=== PATIENT | female | born 1965 | race American Indian/Alaskan Native ===

== ENCOUNTER 2017-05-08 00:24 | Emergency (ER) | payer MEDICARE ==
--- NOTE | 2017-05-08 01:57 | Cat Scan Report ---
FINAL REPORT EXAM: CT HEAD/BRAIN W/O CONTRAST. HISTORY: Headache, with reported different migraine than usual. TECHNIQUE: Unenhanced axial CT images of the brain were obtained. FINDINGS: The cortical sulci and ventricles are within normal limits for patient's age. The veras-white differentiation is maintained. There is no extra-axial fluid collection, mass, mass effect, midline shift, hydrocephalus, or acute intracranial hemorrhage. There is minimal sinus mucosal thickening in the dependent portions of the bilateral sphenoid sinuses, with possible air-fluid levels. There is also minimal sinus mucosal thickening in several right anterior ethmoid air cells. The remainder of the visualized paranasal sinuses and mastoid air cells are clear. There is no skull fracture or other osseous abnormality. The visualized orbits and globes are grossly unremarkable. IMPRESSION: 1. No acute intracranial abnormality. 2. Minimal status mucosal thickening in the dependent bilateral sphenoid sinuses, with possible tiny air-fluid levels, raising possibility of minimal acute sinusitis.
[2017-05-08] MEDS ORDERED: TYLENOL PO ONE (04:45)
[2017-05-08] MEDS ORDERED: TYLENOL ONE (04:51)
[2017-05-08 13:24] VITALS: BP 96/71
[2017-05-08] MEDS ORDERED: DECADRON IM ONE (13:31)
--- NOTE | 2017-05-08 13:38 | Emergency Department Report ---
ED Headache HPI - General Chief Complaint: Headache Stated Complaint: MIGRAIN HEADACHE Time Seen by Provider: 05/08/17 13:26 Source: patient - History of Present Illness Initial Comments: Patient is 52 years old female with history of headache. Presented with headache started 2 days ago on and off global. Patient stated her headache is different this time. Patient denied any fever or neck stiffness. No weakness numbness or tingling sensation. No bowel or bladder incontinence. Timing/Duration: 24 hours Quality: moderate Head Injury Location: global Recent Head Trauma: no recent headache/trauma Associated Symptoms: sinus infection. denies: denies symptoms, confusion, fatigue, facial pain, fever/chills, flushing, loss of consciousness, nausea/ vomiting, nasal congestion, nasal drainage, numbness in legs/feet, rash, seizures, stiff neck, vision changes, weakness, other Allergies/Adverse Reactions: Allergies No Known Allergies Allergy (Verified 01/26/13 16:11) Home Medications: Ambulatory Orders Esomeprazole Magnesium [Nexium] 40 mg PO BID 01/26/13 Cyclobenzaprine HCl [Flexeril 5 MG TAB] 5 mg PO TID PRN #10 tablet 06/03/13 HYDROcodone/APAP 5-325 [[place] 5-325 mg TAB] 1 each PO Q8HR PRN #6 tablet traMADol [Ultram] 50 mg PO Q6HR PRN #20 tablet 08/23/15 ED Review of Systems ROS: Stated complaint: MIGRAIN HEADACHE Other details as noted in HPI Comment: All other systems reviewed and negative Constitutional: denies: chills, fever ENT: congestion Cardiovascular: denies: chest pain, palpitations Gastrointestinal: denies: abdominal pain, nausea, vomiting, diarrhea, constipation, hematemesis, hematochezia Neurological: denies: headache, weakness, numbness, paresthesias ED Past Medical Hx - Past Medical History Previous Medical History?: Yes Additional medical history: complex regional pain syndrome, gout - Surgical History Past Surgical History?: No Additional Surgical History: foot surgery jun 2011 - Social History Smoking Status: Former Smoker Substance Use Type: None - Medications Home Medications: Home Medications Medication Instructions Recorded Confirmed Last Taken Type Esomeprazole Magnesium [Nexium] 40 mg PO BID 01/26/13 06/03/13 06/03/13 History Cyclobenzaprine HCl [Flexeril 5 MG 5 mg PO TID PRN #10 tablet 06/03/13 Unknown Rx TAB] HYDROcodone/APAP 5-325 [[place] 1 each PO Q8HR PRN #6 tablet 06/03/13 Unknown Rx 5-325 mg TAB] traMADol [Ultram] 50 mg PO Q6HR PRN #20 tablet 08/23/15 Unknown Rx ED Physical Exam - General Limitations: No Limitations General appearance: alert, in no apparent distress - ENT ENT exam: Present: other (sinus tenderness) - Neck Neck exam: Present: normal inspection, full ROM. Absent: tenderness, meningismus, lymphadenopathy, thyromegaly - Respiratory Respiratory exam: Present: normal lung sounds bilaterally. Absent: respiratory distress, wheezes, rales, rhonchi, stridor, chest wall tenderness, accessory muscle use, decreased breath sounds, prolonged expiratory - Cardiovascular Cardiovascular Exam: Present: regular rate, normal rhythm, normal heart sounds - GI/Abdominal GI/Abdominal exam: Present: soft, normal bowel sounds. Absent: distended, tenderness, guarding, rebound, rigid, organomegaly, mass, bruit, pulsatile mass , hernia - Extremities Exam Extremities exam: Present: normal inspection, full ROM, normal capillary refill - Back Exam Back exam: Present: normal inspection, full ROM. Absent: tenderness, CVA tenderness (R), CVA tenderness (L), muscle spasm, paraspinal tenderness, vertebral tenderness - Neurological Exam Neurological exam: Present: alert, oriented X3, CN II-XII intact, normal gait, reflexes normal. Absent: abnormal gait, motor sensory deficit - Skin Skin exam: Present: warm, intact, normal color. Absent: cyanosis, diaphoretic, erythema ED Course Vital Signs 05/08/17 05/08/17 05/08/17 00:31 00:55 04:55 Temperature 99.3 F 99.3 F Pulse Rate 109 H 96 H Respiratory 20 20 18 Rate Blood Pressure 113/77 113/77 Blood Pressure [Right] O2 Sat by Pulse 97 95 Oximetry 05/08/17 05/08/17 05:55 13:23 Temperature 98.5 F Pulse Rate 99 H Respiratory 18 18 Rate Blood Pressure Blood Pressure 96/71 [Right] O2 Sat by Pulse 96 Oximetry ED Medical Decision Making - Radiology Data Radiology results: report reviewed Referring Physician: ED DOC Patient Name: JULIANN WILLETT Date of : 1965 Sex: Female Report Date: 2017-05-07 Report Status: Finalized Findings [facility] [address] [place] [address] Cat Scan Report Signed Patient: JULIANN WILLETT MR#: [id number] : 1965 Acct:[id number] Age/Sex: 52 / F ADM Date: 05/08/17 Loc: ED Attending Dr: Ordering Physician: SRI BE MD Date of Service: 05/08/17 Procedure(s): CT head/brain wo con Accession Number(s): [id number] cc: ED MD [place] FINAL REPORT EXAM: CT HEAD/BRAIN W/O CONTRAST. HISTORY: Headache, with reported different migraine than usual. TECHNIQUE: Unenhanced axial CT images of the brain were obtained. FINDINGS: The cortical sulci and ventricles are within normal limits for patient's age. The veras-white differentiation is maintained. There is no extra-axial fluid collection, mass, mass effect, midline shift, hydrocephalus, or acute intracranial hemorrhage. There is minimal sinus mucosal thickening in the dependent portions of the bilateral sphenoid sinuses, with possible air-fluid levels. There is also minimal sinus mucosal thickening in several right anterior ethmoid air cells. The remainder of the visualized paranasal sinuses and mastoid air cells are clear. There is no skull fracture or other osseous abnormality. The visualized orbits and globes are grossly unremarkable. IMPRESSION: 1. No acute intracranial abnormality. 2. Minimal status mucosal thickening in the dependent bilateral sphenoid sinuses, with possible tiny air-fluid levels, raising possibility of minimal acute sinusitis. Transcribed By: [facility] Dictated By: LUIS MATOS MD Electronically Authenticated By: LUIS MATOS MD Signed Date/Time: 05/07/172153 DD/ 53 TD/TT: 05/07/172153 Critical care attestation.: If time is entered above; I have spent that time in minutes in the direct care of this critically ill patient, excluding procedure time. ED Disposition Clinical Impression: Headache, Sinusitis Disposition: - TO HOME OR SELFCARE Is pt being admited?: No Condition: Stable Instructions: Sinusitis (ED), Acute Headache (ED) Referrals: NADIA ARIZMENDI, [employer] [Primary Care Provider] - 3-5 Days
[2017-05-08] MEDS ORDERED: ZOFRAN IM ONE (13:48)
[2017-05-08] MEDS ORDERED: MORPHINE IM ONE (13:48)
== END 2017-05-08 16:43 | disposition home or self-care (01) ==
LOC: ED 00:24
DX: J32.9 Chronic sinusitis, unspecified (principal); R51 Headache; Z87.891 Personal history of nicotine dependence
CPT/HCPCS: 70450; 96372; 99283; J1100; J2270; J2405

== ENCOUNTER 2018-12-31 20:36 | Emergency (ER) | payer MEDICARE ==
[2018-12-31 20:58] VITALS: BP 119/83
--- NOTE | 2018-12-31 21:21 | Event Note ---
ED Screening Note ED Screening Note: pt presents with lower back pain that began tonight she states she "pulled her back" states it causes pain in her BLE PMHx CRPS no allergies to meds PSHx hysterectomy This initial assessment/diagnostic orders/clinical plan/treatment(s) is/are subject to change based on patients health status, clinical progression and re- assessment by fellow clinical providers in the ED. Further treatment and workup at subsequent clinical providers discretion. Patient/guardian urged not to elope from the ED as their condition may be serious if not clinically assessed and managed. Initial orders include: XR L-spine
--- NOTE | 2018-12-31 22:24 | XRay Report ---
CLINICAL DATA: lower back pain TECHNICAL DATA: AP, lateral and L5-S1 spot views. FINDINGS: The five lumbar vertebrae have normal height, alignment and mineralization. There is no fracture or d islocation. Intervertebral disc space L5-S1 present. The sacroiliac joints and partially imaged pelvi s are normal. IMPRESSION: Mild degenerative changes as described. Signer Name: Andrea Lino MD Signed: 12/31/2018 10:20 PM Workstation Name: [id number]
[2018-12-31] MEDS ORDERED: TORADOL IM ONE (23:34)
[2018-12-31] MEDS ORDERED: NORCO 10/325 PO ONE (23:34)
[2018-12-31] MEDS ORDERED: DELTASONE PO ONE ×2 (23:34→23:38)
[2018-12-31] MEDS ORDERED: TORADOL ONE (23:37)
[2018-12-31] MEDS ORDERED: NORCO 10/325 ONE (23:38)
[2018-12-31 23:55] LABS: Basophils # (Auto) 0.1 K/mm3 (0.0-0.1); Eosinophils # (Auto) 0.2 K/mm3 (0.0-0.4); Eosinophils % (Auto) 2.6 % (0.0-4.3); Hematocrit 41.7 % (30.3-42.9); Hemoglobin 14.4 gm/dl (10.1-14.3); Lymphocytes # (Auto) 2.8 K/mm3 (1.2-5.4); Lymphocytes % (Auto) 42.6 % (13.4-35.0); Mean Corpuscular HGB Conc 34 % (30-34); Mean Corpuscular Volume 90 fl (79-97); Monocytes # (Auto) 0.5 K/mm3 (0.0-0.8); Monocytes % (Auto) 7.4 % (0.0-7.3); Platelet Count 250 K/mm3 (140-440); Red Blood Count 4.62 M/mm3 (3.65-5.03); Red Cell Distribution Width 13.7 % (13.2-15.2)
[2019-01-01 00:14] LABS: BUN/Creatinine Ratio 17; Blood Urea Nitrogen 17 mg/dL (7-17); Calcium 9.6 mg/dL (8.4-10.2); Hemolysis Index 8
--- NOTE | 2019-01-01 00:39 | Emergency Department Report ---
ED Back Pain/Injury HPI - General Chief Complaint: Back Pain/Injury Stated Complaint: DIZZY Time Seen by Provider: 12/31/18 21:19 Source: patient Limitations: No Limitations - History of Present Illness Initial Comments: This is a 53-year-old female nontoxic, well nourished in appearance, no acute signs of distress presents to the ED with c/o of acute on chronic lower back pain. Patient stated that the past 2 days she was heavy lifting and developed this pain. Patient states has history of sciatica nerve pain which is similar symptoms as today. Patient states that pain radiates through to his bilateral lower extremity. Patient denies any trauma. Denies any bladder or bowel instability. Patient denies any urinary symptoms. Denies any fever, chills, nausea, vomiting, headache, stiff neck, chest pain or shortness of breath. Patient denies any numbness or tingling. Denies any allergies. Denies significant past medical history. MD Complaint: back pain -: days(s) Similar Symptoms Previously: Yes Place: home Radiation: left leg, right leg Severity: mild Severity scale (0 -10): 8 Quality: aching Consistency: intermittent Improves With: immobilization, sitting upright Worsens With: movement, walking Context: while lifting, turning/twisting Associated Symptoms: denies other symptoms. denies: confusion, weakness, chest pain, numbness, difficulty walking, cough, difficulty urinating, diaphoresis, incontinence, fever/chills, constipation, headaches, abdominal pain, loss of appetite, malaise, nausea/vomiting, rash, seizure, shortness of breath, syncope - Related Data Home Medications Medication Instructions Recorded Confirmed Last Taken Esomeprazole Magnesium [Nexium] 40 mg PO BID 01/26/13 06/03/13 06/03/13 Previous Rx's Medication Instructions Recorded Last Taken Type Cyclobenzaprine HCl [Flexeril 5 MG 5 mg PO TID PRN #10 tablet 06/03/13 Unknown Rx TAB] HYDROcodone/APAP 5-325 [[place] 1 each PO Q8HR PRN #6 tablet 06/03/13 Unknown Rx 5-325 mg TAB] traMADol [Ultram] 50 mg PO Q6HR PRN #20 tablet 08/23/15 Unknown Rx Amoxicillin [Amoxicillin TAB] 875 mg PO BID #14 tablet 05/08/17 Unknown Rx Ondansetron [Zofran Odt] 4 mg PO Q8HR PRN #14 tab.rapdis 05/08/17 Unknown Rx Prednisone [predniSONE ([place]) ER 40 mg PO QDAY #40 tablet.dr 05/08/17 Unknown Rx TAB] traMADol [Ultram] 50 mg PO Q6HR PRN #14 tablet 05/08/17 Unknown Rx Acetaminophen/Codeine [Tylenol 1 tab PO Q6H PRN #12 tab 01/01/19 Unknown Rx /Codeine # 3 tab] Cyclobenzaprine [Flexeril] 10 mg PO QHS PRN #10 tablet 01/01/19 Unknown Rx Ibuprofen [Motrin] 600 mg PO Q8H PRN #20 tablet 01/01/19 Unknown Rx Prednisone [predniSONE 10 mg 10 mg PO .TAPER #1 tab.ds.pk 01/01/19 Unknown Rx (6-Day Pack, 21 Tabs)] Allergies Allergy/AdvReac Type Severity Reaction Status Date / Time No Known Allergies Allergy Verified 01/26/13 16:11 ED Review of Systems ROS: Stated complaint: DIZZY Other details as noted in HPI Constitutional: denies: chills, fever Eyes: denies: eye pain, eye discharge, vision change ENT: denies: ear pain, throat pain Respiratory: denies: cough, shortness of breath, wheezing Cardiovascular: denies: chest pain, palpitations Endocrine: no symptoms reported Gastrointestinal: denies: abdominal pain, nausea, diarrhea Genitourinary: denies: urgency, dysuria, discharge Musculoskeletal: back pain. denies: joint swelling, arthralgia Skin: denies: rash, lesions Neurological: denies: headache, weakness, paresthesias Psychiatric: denies: anxiety, depression Hematological/Lymphatic: denies: easy bleeding, easy bruising ED Past Medical Hx - Past Medical History Previous Medical History?: Yes Additional medical history: complex regional pain syndrome, gout - Surgical History Past Surgical History?: Yes Additional Surgical History: foot surgery jun 2011, Hysterectomy - Social History Smoking Status: Current Some Day Smoker Substance Use Type: None - Medications Home Medications: Home Medications Medication Instructions Recorded Confirmed Last Taken Type Esomeprazole Magnesium [Nexium] 40 mg PO BID 01/26/13 06/03/13 06/03/13 History Cyclobenzaprine HCl [Flexeril 5 MG 5 mg PO TID PRN #10 tablet 06/03/13 Unknown Rx TAB] HYDROcodone/APAP 5-325 [[place] 1 each PO Q8HR PRN #6 tablet 06/03/13 Unknown Rx 5-325 mg TAB] traMADol [Ultram] 50 mg PO Q6HR PRN #20 tablet 08/23/15 Unknown Rx Amoxicillin [Amoxicillin TAB] 875 mg PO BID #14 tablet 05/08/17 Unknown Rx Ondansetron [Zofran Odt] 4 mg PO Q8HR PRN #14 tab.rapdis 05/08/17 Unknown Rx Prednisone [predniSONE ([place]) ER 40 mg PO QDAY #40 tablet.dr 05/08/17 Unknown Rx TAB] traMADol [Ultram] 50 mg PO Q6HR PRN #14 tablet 05/08/17 Unknown Rx Acetaminophen/Codeine [Tylenol 1 tab PO Q6H PRN #12 tab 01/01/19 Unknown Rx /Codeine # 3 tab] Cyclobenzaprine [Flexeril] 10 mg PO QHS PRN #10 tablet 01/01/19 Unknown Rx Ibuprofen [Motrin] 600 mg PO Q8H PRN #20 tablet 01/01/19 Unknown Rx Prednisone [predniSONE 10 mg 10 mg PO .TAPER #1 tab.ds.pk 01/01/19 Unknown Rx (6-Day Pack, 21 Tabs)] ED Physical Exam - General Limitations: No Limitations General appearance: alert, in no apparent distress - Head Head exam: Present: atraumatic, normocephalic - Neck Neck exam: Present: normal inspection, full ROM. Absent: tenderness, meningismus, lymphadenopathy - Extremities Exam Extremities exam: Present: normal inspection, full ROM. Absent: tenderness - Back Exam Back exam: Present: normal inspection, full ROM, paraspinal tenderness (lumbar paraspinal). Absent: tenderness, CVA tenderness (R), CVA tenderness (L), muscle spasm, vertebral tenderness, rash noted - Expanded Back Exam Expanded Back exam: Absent: saddle anesthesia Back exam: Negative Straight Leg Raising: Left, Right - Neurological Exam Neurological exam: Present: alert, oriented X3, normal gait - Psychiatric Psychiatric exam: Present: normal affect, normal mood - Skin Skin exam: Present: warm, dry, intact, normal color. Absent: rash ED Course Vital Signs 12/31/18 20:57 Temperature 97.8 F Pulse Rate 94 H Respiratory 20 Rate Blood Pressure 119/83 O2 Sat by Pulse 98 Oximetry - Reevaluation(s) Reevaluation #1: 01/01/19 00:33 Patient is speaking in full sentences with no signs of distress noted. ED Medical Decision Making - Lab Data Result diagrams: 12/31/18 23:43 12/31/18 23:43 - Medical Decision Making This is a 53-year-old female that presents with low back strain. Patient is stable was examined by me. There is no spinal tenderness. There is no cauda equina syndrome during examination. No bladder or bowel instability. Patient received Toradol 60 mg IM, [place], and prednisone in the ED which staetd that her symptoms has resolved and subsided. Patient stated her family member will drive her home after discharge due to possible drowsiness of [place]. Patient is discharged with Tylenol with Codeine, prednisone, muscle relaxant and Motrin. Patient was instructed not to operate any machinery while taking muscle relaxant as they cause her drowsiness. Patient was referred to Follow-up with a primary care doctor in 3-5 days or if symptoms worsen and continue return to emergency room as soon as possible. At time of discharge, the patient does not seem toxic or ill in appearance. No acute signs of distress noted. Patient agrees to discharge treatment plan of care. No further questions noted by the patient. This chart is dictated with using [employer] Dictation [employer] Critical care attestation.: If time is entered above; I have spent that time in minutes in the direct care of this critically ill patient, excluding procedure time. ED Disposition Clinical Impression: Low back strain Qualifiers: Encounter type: initial encounter Qualified Code(s): S39.012A - Strain of muscle, fascia and tendon of lower back, initial encounter DJD (degenerative joint disease), lumbar Qualifiers: Spinal osteoarthritis complication: unspecified spinal osteoarthritis Qualified Code(s): M47.816 - Spondylosis without myelopathy or radiculopathy, lumbar region Disposition: - TO HOME OR SELFCARE Is pt being admited?: No Does the pt Need Aspirin: No Condition: Stable Instructions: Muscle Strain (ED), Cyclobenzaprine (By mouth) Additional Instructions: Follow-up with your primary care doctor in 3-5 days or if symptoms worsen such as bladder or bowel stability, chest pain, short of breath, numbness or tingling sensation in extremities, headache, dizziness, visual changes, nausea vomiting, or abdominal pain, return back to emergency room as was possible. Take ibuprofen and Flexeril as prescribed. Do not operate heavy machinery while taking Flexeril due to sedation Do not operate any machinery while taking Tylenol with codeine as this may cause drowsiness. Prescriptions: Cyclobenzaprine [Flexeril] 10 mg PO QHS PRN #10 tablet PRN Reason: Muscle Spasm Ibuprofen [Motrin] 600 mg PO Q8H PRN #20 tablet PRN Reason: Pain Prednisone [predniSONE 10 mg (6-Day Pack, 21 Tabs)] 10 mg PO .TAPER #1 tab.ds.pk Acetaminophen/Codeine [Tylenol /Codeine # 3 tab] 1 tab PO Q6H PRN #12 tab PRN Reason: Pain , Severe (7-10) Referrals: PRIMARY CAREMD [Primary Care Provider] - 3-5 Days YAZMIN FRANZ MD [Staff Physician] - 3-[address] [facility] [Outside] - 3-5 Days [facility] [Outside] - 3-5 Days Forms: Work/School Release Form(ED)
== END 2019-01-01 01:10 | disposition home or self-care (01) ==
LOC: ED 20:36
DX: S39.012A Strain of muscle, fascia and tendon of lower back, initial encounter (principal); M47.9 Spondylosis, unspecified; F17.200 Nicotine dependence, unspecified, uncomplicated; Z98.890 Other specified postprocedural states; Z90.710 Acquired absence of both cervix and uterus; Z79.899 Other long term (current) drug therapy; X50.9XXA Other and unspecified overexertion or strenuous movements or postures, initial encounter; Y93.89 Activity, other specified; Y92.098 Other place in other non-institutional residence as the place of occurrence of the external cause; Y99.8 Other external cause status
CPT/HCPCS: 36415; 72100; 80048; 85025; 96372; 99283; J1885; J7512